=== PATIENT | male | born 1985 | race Caucasian/White ===

== ENCOUNTER 2023-08-05 11:28 | Emergency (ER) | payer MEDICAID ==
[~2023-08-05] VITALS: Ht 172.7 cm; Wt 75.0 kg
[~2023-08-05 11:28] MED LIST: AMAN100T PO; ATOR40TA70 PO; BENZ1TAB79 PO; BUPR-46 PO; ESK450 PO; FAMO20TA8 PO; LORA-249 PO; NALT50TA PO; VARE1TAB21 PO
[2023-08-05 11:31] VITALS: O2SAT 99
[2023-08-05 12:10] VITALS: BP 116/70; PULSE 85; RESP 18; TEMP 98.4
[2023-08-05] MEDS: TETANUS, DIPHTHERIA, PERTUSSIS VAC/PF 0.5ML (>10YR OLD) IM ONE (15:02)
== END 2023-08-05 13:28 | disposition home or self-care (01) ==
LOC: ER 12:01
DX: S01.81XA Laceration without foreign body of other part of head, initial encounter (principal); S09.90XA Unspecified injury of head, initial encounter; E78.00 Pure hypercholesterolemia, unspecified; J45.909 Unspecified asthma, uncomplicated; Z79.899 Other long term (current) drug therapy; Z86.59 Personal history of other mental and behavioral disorders; W06.XXXA Fall from bed, initial encounter; Y93.89 Activity, other specified; Y92.89 Other specified places as the place of occurrence of the external cause; Y99.8 Other external cause status
CPT/HCPCS: 70450; 90715; 90471; 99285; Z7610

== ENCOUNTER 2024-02-27 21:09 | Emergency (ER) | payer MEDICAID ==
[~2024-02-27] VITALS: Ht 170.2 cm; Wt 69.0 kg
[~2024-02-27 21:09] MED LIST changes: -NALT50TA PO; +NALT50TA6 PO
[2024-02-27] MEDS: LORAZEPAM 2MG/ML INJ IM ONE (22:23)
[2024-02-27] MEDS: HALOPERIDOL LACTATE 5MG/ML VIAL IM ONE (22:23)
[2024-02-27 23:13] LABS: EOSINOPHILS % 3.2 % (0.0-5.0); HEMATOCRIT. 31.4 % (42.0-52.0); HEMOGLOBIN. 10.2 g/dL (14.0-18.0); LYMPHOCYTES % 27.1 % (20.0-50.0); MEAN CORPUSCULAR HEMOGLOBIN 29.4 pg (28.0-32.0); MEAN CORPUSCULAR HGB CONC 32.5 g/dL (31.0-37.0); MEAN CORPUSCULAR VOLUME 90.5 fL (80.0-94.0); MEAN PLATELET VOLUME 7.5 fl (7.4-10.4); MONOCYTES % 8.3 % (2.0-8.0); NEUTROPHILS % 60.4 % (40.0-76.0); PLATELET 304 x1000/uL (130-400); RED BLOOD CELL COUNT 3.47 mill/uL (4.7-6.1); RED CELL DISTRIBUTION WIDTH 15.7 % (11.6-14.6); WHITE BLOOD COUNT 8.3 x1000/uL (4.5-11.0)
[2024-02-27 23:17] LABS: CLARITY URINE CLOUDY (CLEAR); COLOR URINE YELLOW (YELLOW); GLUCOSE URINE NEGATIVE (NEGATIVE); KETONES URINE NEGATIVE (NEGATIVE); LEUKOCYTE ESTERASE URINE NEGATIVE (NEGATIVE); NITRITE URINE NEGATIVE (NEGATIVE); OCCULT BLOOD URINE NEGATIVE (NEGATIVE); PH URINE 5.5 (4.5-8.0); PROTEIN URINE TRACE (NEGATIVE); SPECIFIC GRAVITY URINE 1.034 (1.005-1.030)
[2024-02-27 23:19] LABS: CHLORIDE 110 mEq/L (98-107); SODIUM 144 mEq/L (136-145)
[2024-02-27 23:20] LABS: CARBON DIOXIDE 25 mEq/L (21-32)
[2024-02-27 23:25] LABS: CREATININE 0.7 mg/dL (0.6-1.3); GLUCOSE 134 mg/dL (70-105)
[2024-02-27 23:26] LABS: UREA NITROGEN BLOOD 13 mg/dL (9-23)
[2024-02-27 23:27] LABS: ACETAMINOPHEN < 2 ug/mL (10-30)
[2024-02-27 23:35] LABS: BACTERIA URINE NONE SEEN; RBC URINE NONE SEEN /hpf (0-2); SQUAMOUS EPITHELIAL CELL URINE RARE /lpf (RARE/1+); WBC URINE 0-2 /hpf (0-2)
[2024-02-27 23:36] LABS: CALCIUM OXALATE CRYSTALS URINE 2+ /lpf
[2024-02-27 23:50] LABS: ETHANOL BLOOD < 10 mg/dL (<10)
[2024-02-28] MEDS: POTASSIUM CHLORIDE 20MEQ TABLET SR PO ONE (02:15)
[2024-02-28 02:30] LABS: *AMPHETAMINES SCREEN URINE PRESUMPTIVE POSITIVE (NEGATIVE); *BARBITURATES SCREEN URINE NEGATIVE (NEGATIVE); *BENZODIAZEPINES SCREEN URINE NEGATIVE (NEGATIVE); *COCAINE SCREEN URINE NEGATIVE (NEGATIVE); CANNABINOID URINE SCREEN PRESUMPTIVE POSITIVE (NEGATIVE); ECSTASY MDMA SCREEN URINE NEGATIVE (NEGATIVE); METHADONE URINE SCREEN NEGATIVE (NEGATIVE); OPIATES URINE SCREEN NEGATIVE (NEGATIVE); PHENCYCLIDINE URINE SCREEN NEGATIVE (NEGATIVE)
[2024-02-28] MEDS ORDERED: MIDAZOLAM HCL 2 MG/2 ML VIAL IM ONE (20:30)
[2024-02-28] MEDS: HALOPERIDOL LACTATE 5MG/ML VIAL IM ONE (20:35)
[2024-02-28] MEDS ORDERED: MIDAZOLAM HCL 2 MG/2 ML VIAL IM NR (20:45)
[2024-02-28] MEDS ORDERED: MIDAZOLAM HCL 5 MG/5 ML VIAL IM NR (21:00)
[2024-02-28] MEDS ORDERED: MIDAZOLAM HCL 5 MG/ML VIAL IM NR (21:00)
[2024-02-28] MEDS: MIDAZOLAM HCL 2 MG/2 ML VIAL IM NR (21:05)
[2024-02-29 00:15] VITALS: O2SAT 98
[2024-02-29 06:24] VITALS: BP 116/64; PULSE 93; RESP 16; TEMP 36.83628; O2SAT 99
== END 2024-02-29 12:56 | disposition home or self-care (01) ==
LOC: ER 21:09
DX: R45.851 Suicidal ideations (principal); J45.909 Unspecified asthma, uncomplicated; E78.00 Pure hypercholesterolemia, unspecified; Z79.899 Other long term (current) drug therapy; Z86.59 Personal history of other mental and behavioral disorders
CPT/HCPCS: 80305; 80048; 81003; 80307; 80329; 80320; 85025; 36415; 73620; 96372 ×2; 99285; 87426; J1630 ×2; J2060; J2250; G0480